=== PATIENT | female | born 1970 | race Two or more races ===

== ENCOUNTER 2020-01-12 16:20 | Emergency (ER) | payer BC, OTHER ==
[~2020-01-12] VITALS: Ht 157.5 cm; Wt 70.3 kg
[2020-01-12] MEDS ORDERED: SODIUM CHLORIDE 0.9% 1,000 ML IV ONE ×2 (18:00→20:00)
[2020-01-12] MEDS ORDERED: BENZOCAINE (DENTAL) 20 % SPRAY 60ML MT ONE (18:04)
[2020-01-12] MEDS ORDERED: SODIUM CHLORIDE LOCK 10 ML ONE (18:04)
[2020-01-12] MEDS ORDERED: NALOXONE HCL 0.4 MG/ML VIAL ONE (18:04)
[2020-01-12] MEDS ORDERED: FLUMAZENIL 0.1 MG/ML INJ 10ML MDV IV ONE (18:04)
[2020-01-12] MEDS ORDERED: diphenhdrAMINE HCL 50 MG/1 ML VL ONE (18:05)
[2020-01-12 19:03] LABS: Basophils # (auto) 0 10 ^3/uL (0-0.2); Basophils % (auto) 0.8 % (0.0-2.0); Eosinophils # (auto) 0.2 10 ^3/uL (0-0.8); Eosinophils % (auto) 3.4 % (0.0-7.0); Hematocrit 32.6 % (36.0-46.0); Hemoglobin 10.6 g/dL (12.2-16.2); Lymphocytes # (auto) 1.7 10 ^3/uL (0.4-5.4); Lymphocytes % (auto) 27.2 % (10.0-50.0); Mean Corpuscular Hemoglobin 22.8 pg (28.0-32.0); Mean Corpuscular Hgb Conc. 32.4 g/dL (32.0-36.0); Mean Corpuscular Volume 70.4 fL (80.0-100.0); Monocytes # (auto) 0.5 10 ^3/uL (0-1.3); Monocytes % (auto) 8.3 % (0.0-12.0); Neutrophils # (auto) 3.8 10 ^3/uL (1.6-8.6); Neutrophils % (auto) 60.3 % (37.0-80.0); Platelet Count (auto) 266 10^3/uL (140-450); Red Blood Cells 4.63 10^6/uL (4.0-5.20); Red Cell Distribution Width 18.4 % (11.8-14.3); White Blood Cell 6.4 10^3/uL (4.4-10.8)
[2020-01-12 19:11] LABS: INR 0.9 (0.9-1.15)
[2020-01-12 19:19] LABS: BUN/Creatinine Ratio 21.6; Potassium 3.6 mmol/L (3.5-5.1)
[2020-01-12] MEDS: fentaNYL CITRATE 100 MCG/2 ML VL ONE ×2 (20:02→20:05)
[2020-01-12] MEDS: MIDAZOLAM HCL 5 MG/ML-1ML VIAL ONE ×2 (20:02→20:05)
[2020-01-12 22:30] VITALS: BP 127/75
== END 2020-01-12 22:56 | disposition home or self-care (01) ==
LOC: ER 16:20
DX: T18.108A Unspecified foreign body in esophagus causing other injury, initial encounter (principal); M54.2 Cervicalgia; Z20.828 Contact with and (suspected) exposure to other viral communicable diseases; X58.XXXA Exposure to other specified factors, initial encounter; Y93.89 Activity, other specified; Y92.89 Other specified places as the place of occurrence of the external cause; Y99.8 Other external cause status
CPT/HCPCS: 36415; 43235; 70490; 80048; 85025; 85610; 87426; 96360; 96361; 99285; C9803; J2250; J3010; J7030; U0003

== ENCOUNTER 2021-09-28 11:42 | Emergency (ER) | payer BC, OTHER ==
[2021-09-28] MEDS ORDERED: LORazepam 2MG/ML-1ML VIAL IV ONE (13:00)
[2021-09-28] MEDS ORDERED: diazePAM 2 MG TAB PO ONE (13:30)
[2021-09-28] MEDS ORDERED: LORA0.5T20 PO (13:32)
[2021-09-28 15:32] VITALS: BP 149/90
== END 2021-09-28 14:39 | disposition home or self-care (01) ==
LOC: ER 11:42
DX: I10 Essential (primary) hypertension (principal); F41.9 Anxiety disorder, unspecified; E78.5 Hyperlipidemia, unspecified
CPT/HCPCS: 70450

== ENCOUNTER 2023-04-28 22:01 | Emergency (ER) | payer OTHER ==
[~2023-04-28] VITALS: Ht 157.5 cm; Wt 73.0 kg
[~2023-04-28 22:01] MED LIST: LORA-1121 PO
[2023-04-29] MEDS ORDERED: IBUP-1455 PO (01:19)
[2023-04-29] MEDS ORDERED: HYDR-4902 PO (01:19)
[2023-04-29] MEDS: HYDROcodone-ACET 10/325MG TAB PO ONE (02:24)
[2023-04-29 02:40] VITALS: BP 127/84; PULSE 95; RESP 16; TEMP 98.7; O2SAT 98
== END 2023-04-29 02:40 | disposition home or self-care (01) ==
LOC: ER 22:01
DX: S93.401A Sprain of unspecified ligament of right ankle, initial encounter (principal); E78.5 Hyperlipidemia, unspecified; X50.1XXA Overexertion from prolonged static or awkward postures, initial encounter; Y93.89 Activity, other specified; Y92.89 Other specified places as the place of occurrence of the external cause; Y99.8 Other external cause status
CPT/HCPCS: 73610

== ENCOUNTER 2023-08-18 13:32 | Emergency (ER) | payer OTHER ==
[~2023-08-18] VITALS: Ht 157.5 cm; Wt 72.0 kg
[~2023-08-18 13:32] MED LIST changes: +HYDR-4902 PO; +IBUP-1455 PO
[2023-08-18 16:01] VITALS: BP 132/92; PULSE 84; RESP 18; TEMP 97.8; O2SAT 96
[2023-08-18] MEDS ORDERED: AUG875T PO (16:08)
[2023-08-18] MEDS ORDERED: NAPR-746 PO (16:08)
[2023-08-18] MEDS: KETOROLAC TROMETH 30 MG/ML 1ML VIAL IV ONE (16:15)
[2023-08-18] MEDS: AMPICILLIN & SULBACTAM SODIUM 3 GM in SODIUM CHL 0.9% 100 ML IV ONE (16:15)
[2023-08-18] MEDS: TETANUS-DIPTH-ACEL PERTUSSIS 0.5ML SYR Tdap IM ONE (16:24)
== END 2023-08-18 17:21 | disposition home or self-care (01) ==
LOC: ER 13:32
DX: S81.051A Open bite, right knee, initial encounter (principal); M25.561 Pain in right knee; E78.5 Hyperlipidemia, unspecified; W54.0XXA Bitten by dog, initial encounter; Y93.89 Activity, other specified; Y92.89 Other specified places as the place of occurrence of the external cause; Y99.8 Other external cause status
CPT/HCPCS: 73562; 73700; 90471; 90715; 96365; 96375; 99285; J1885

== ENCOUNTER 2024-06-24 22:33 | Emergency (ER) | payer OTHER ==
[~2024-06-24] VITALS: Ht 157.5 cm; Wt 76.7 kg
[~2024-06-24 22:33] MED LIST changes: +AUG875T PO; +NAPR-746 PO
--- NOTE | 2024-06-24 23:01 | ED.PDOC ---
Back pain HPI HPI Comments Pt c/o right hand pain x30 min. Pt says she got off work and noticed some bruising to dorsal aspect of hand. Noted small bruise and hematoma to hand below 2nd and 3rd fingers. Pt rates pain 7/10. Denies any trauma. Chief Complaint: Upper Extremity Time Seen by MD: 22:49 Primary Care Provider: DARIA Barlow Notes: Nurses Notes, Medications, Allergies Allergies: Coded Allergies: NO KNOWN ALLERGIES (Unverified , 01/12/20) Home Meds Active Scripts Naproxen (Naproxen) 500 Mg Tab, 500 MG PO BIDPC for 10 Days, #20 TAB 0 Refills Prov:TOLU MURRAY JOB COUNSELOR 08/18/23 Amoxicillin & Pot Clavulanate (AUGMENTIN TABLET) 875 Mg Tb, 875 MG PO BID for 10 Days, #20 TAB 0 Refills Prov:TOLU MURRAY JOB COUNSELOR 08/18/23 Hydrocodone-Acetaminophen (Hydrocodone Bitartrate/AC 5-325 mg) 1 Tab Tab, 1 TAB PO Q6HP PRN, #20 TAB Prov:RAGHAV MELGAR PAC 04/29/23 Ibuprofen Micronized (Ibuprofen) 800 Mg Tab, 800 MG PO Q8HP PRN, #30 TAB Prov:RAGHAV MELGAR PAC 04/29/23 Lorazepam (ATIVAN TABLET) 0.5 Mg Tb, 1 TAB PO DAILY for 7 Days, #7 TAB Prov:ERLIN GOMEZ MD 09/28/21 Information Source: Patient Mode of Arrival: Ambulatory Past Medical History PAST MEDICAL HISTORY: Anxiety, Depression, High Lipids Surgical History: Denies all surgeries 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 Family History Family History: Reviewed,noncontributory to illness, Family hx of HTN Social History Smoker: Non-Smoker Alcohol: Rarely Drugs: Denies Drug Use Lives In: Home Constitutional: denies: chills, diaphoresis, fatigue, fever, malaise, sweats, weakness, others EENTM: denies: blurred vision, double vision, ear bleeding, ear discharge, ear drainage, ear pain, ear ringing, eye pain, eye redness, hearing loss, mouth pain, mouth swelling, nasal discharge, nose bleeding, nose congestion, nose pain, photophobia, tearing, throat pain, throat swelling, voice changes, others Respiratory: denies: cough, hemoptysis, orthopnea, SOB at rest, shortness of breath, SOB with excertion, stridor, wheezing, others Cardiovascular: denies: chest pain, dizzy spells, diaphoresis, Dyspnea on exertion, edema, irregular heart beat, left arm pain, lightheadedness, palpitations, PND, syncope, others Gastrointestinal: denies: abdomen distended, abdominal pain, blood streaked bowels, constipated, diarrhea, dysphagia, difficulty swallowing, hematemesis, melena, nausea, poor appetite, poor fluid intake, rectal bleeding, rectal pain, vomiting, others Genitourinary: denies: abnormal vagina bleeding, burning, dyspareunia, dysuria, flank pain, frequency, hematuria, incontinence, pain, , vagina discharge, urgency, others Neurological: denies: dizziness, fainting, headache, left sided numbness, left sided weakness, numbness, paresthesia, pre-existing deficit, right sided numbness, right sided weakness, seizure, speech problems, tingling, tremors, weakness, others Musculoskeletal: denies: back pain, gout, joint pain, joint swelling, muscle pain, muscle stiffness, neck pain, others Integumetry: denies: bruises, change in color, change in hair/nails, dryness, laceration, lesions, lumps, rash, wounds, others Allergic/Immunocompromised: denies: Difficulty Healing, Frequent Infections, Hives, Itching, others Hematologic/Lymphatic: denies: anemia, blood clots, easy bleeding, easy bruising, swollen glands, others Endocrine: denies: excessive hunger, excessive sweating, excessive thirst, excessive urination, flushing, intolerance to cold, intolerance to heat, unexplained weight gain, unexplained weight loss, others Psychiatric: denies: anxiety, bipolar disorder, depression, hopeless, panic disorder, schizophrenia, sleepless, suicidal, others Physical Exam General Appearance: No Apparent Distress, Normal HEENT: Pharynx Normal Neck: Full Range of Motion, Non-Tender Respiratory: Lungs Clear, No Respiratory Distress, Normal Breath Sounds Cardiovascular: No Murmur, Normal Peripheral Pulses, Regular Rate/Rhythm Breast Exam: Deferred Gastrointestinal: Non Tender, Soft Genitalia: Deferred Pelvic: Deferred Rectal: Deferred Extremities: Normal capillary refill, Normal inspection, Normal range of motion, Non-tender, No pedal edema Musculoskeletal : Apperance: Normal Neurologic: Alert, warehouse team member II-XII nml as Tested, No Motor Deficits, Normal Affect, Normal Mood, No Sensory Deficits Cerebellar Function: Normal Reflexes: Normal Skin: Bruises (Dorsum Aspect of right hand hematoma), Dry, Normal Color, Warm Lymphatic: No Adenopathy Was a procedure done? Was a procedure done?: No Back Pain Differential Dx Differential Diagnosis: Fracture, Musculoskeletal Pain, Strain X-Ray, Labs, Meds, VS Vital Signs Date Time Temp Pulse Resp B/P (MAP) Pulse Ox O2 Delivery O2 Flow Rate FiO2 06/24/24 23:22 98.5 78 18 151/91 (111) 97 98.5 06/24/24 23:22 78 18 97 Room Air 06/24/24 22:41 98.5 95 16 168/99 (122) 96 98.5 X-Ray, Labs, Meds, VS Comment Right hand x-ray shows no acute fractures osseous lesions or dislocations. Likely a spontaneous hematoma. No change in size since patient has arrived. [place] wrap applied ice given advised to follow up with her PCP in 1-2 days ER re turn precautions given patient indicates understanding agrees with discharge plan of care. Time of 1ST Reevaluation: 23:00 Reevaluation 1ST: Unchanged Time of 2ND Reevaluation: 23:41 Reevaluation 2ND: Improved Patient Education/Counseling: Diagnosis, Treatment, Prognosis, Need For Follow Up Family Education/Counseling: Diagnosis, Treatment, Prognosis, Need For Follow Up Departure 1 Departure Time of Disposition: 23:41 Impression: Primary Impression: Hematoma of right hand Disposition: 01 HOME / SELF CARE / HOMELESS Condition: Stable Discharged With: Self Critical Care Note Critical Care Time?: No Stability Stability form required: GILDA Hanna Jun 24, 2024 23:01
[2024-06-24 23:22] VITALS: BP 151/91; PULSE 78; RESP 18; TEMP 98.5; O2SAT 97
--- NOTE | 2024-06-24 23:37 | DVH ---
CLINICAL INDICATION: hand swelling dorsum aspect TECHNIQUE: radiographic views of the were obtained. Comparison: None FINDINGS/IMPRESSION: No osseous or joint abnormality identified with no fracture or dislocation. Joint spaces are normal.
== END 2024-06-24 23:47 | disposition home or self-care (01) ==
LOC: ER 22:33
DX: S60.221A Contusion of right hand, initial encounter (principal); F41.9 Anxiety disorder, unspecified; E78.5 Hyperlipidemia, unspecified; F32.A Depression, unspecified; Z79.899 Other long term (current) drug therapy; X58.XXXA Exposure to other specified factors, initial encounter; Y93.89 Activity, other specified; Y92.89 Other specified places as the place of occurrence of the external cause; Y99.8 Other external cause status
CPT/HCPCS: 73130

== ENCOUNTER 2024-07-22 17:54 | Inpatient (IN) | payer OTHER ==
[~2024-07-22] VITALS: Ht 157.5 cm; Wt 80.5 kg
--- NOTE | 2024-07-22 18:11 | ECG ---
[facility] Test Date: 2024-07-22 Test Time: 18:05:32 Pat Name: LENARD SHARMA Department: ER Room: 0298T Gender: F Toilet Attendant: ROMAINE : 1970 Requested By: CASTRO VAZ Order Number: [id number] Reading MD: Clive Selby Measurements Intervals Solo Rate: 77 P: 34 TX: 148 QRS: 15 QRSD: 95 T: 24 QT: 412 QTc: 467 Interpretive Statements Sinus rhythm RSR' in V1 or V2, probably normal variant Borderline T abnormalities, anterior leads Electronically Signed On 07-27-2024 12:09:03 PDT by Clive Selby Please click the below link to view image of tracing.
--- NOTE | 2024-07-22 18:27 | ED.PDOC ---
HPI (NEURO) HPI Comments 54 y/o F, with PMHx of anxiety, depression, and HLD presents to the ED for CC of dizziness. Patient states, that she has been experiencing symptoms of dizziness with associated lack of coordination onset, 0745 this morning (07/22/24). Patient relays, right side of face to feel numb, and reports slight sway to left when ambulating. Patient describes dizziness, to feel as if the room is spinning around her. Patient denies headache, vomiting, nausea, or blurred vision. No other symptoms or modifying factors present at this time. Chief Complaint: Dizziness Time Seen by MD: 18:00 Primary Care Provider: DARIA Barlow Notes: Nurses Notes, Medications, Allergies Information Source: Patient Mode of Arrival: Ambulatory Severity: Moderate Dizziness/Weakness Severity: Unable to do activities Headache Severity: None Timing: Hours Duration: Intermittent Prehospital treatment: None Headache Location: Generalized Onset: At rest Circumstances: Spontaneous Symptoms: Vertigo Before: Normal During: Awake After: Normal Mentation History of: None Modifying factors: Nothing Past Medical History PAST MEDICAL HISTORY: Anxiety, Depression, High Lipids Surgical History: Denies all surgeries DEVELOPMENT COACH History: Denies all DEVELOPMENT COACH Hx Family History Family History: Reviewed,noncontributory to illness, Family hx of HTN Social History Smoker: Non-Smoker Alcohol: Rarely Drugs: Denies Drug Use Lives In: Home Constitutional: denies: chills, diaphoresis, fatigue, fever, malaise, sweats, weakness, others EENTM: denies: blurred vision, double vision, ear bleeding, ear discharge, ear drainage, ear pain, ear ringing, eye pain, eye redness, hearing loss, mouth pain, mouth swelling, nasal discharge, nose bleeding, nose congestion, nose pain, photophobia, tearing, throat pain, throat swelling, voice changes, others Respiratory: denies: cough, hemoptysis, orthopnea, SOB at rest, shortness of breath, SOB with excertion, stridor, wheezing, others Cardiovascular: denies: chest pain, dizzy spells, diaphoresis, Dyspnea on exertion, edema, irregular heart beat, left arm pain, lightheadedness, palpitations, PND, syncope, others Gastrointestinal: denies: abdomen distended, abdominal pain, blood streaked bowels, constipated, diarrhea, dysphagia, difficulty swallowing, hematemesis, melena, nausea, poor appetite, poor fluid intake, rectal bleeding, rectal pain, vomiting, others Genitourinary: denies: abnormal vagina bleeding, burning, dyspareunia, dysuria, flank pain, frequency, hematuria, incontinence, pain, , vagina discharge, urgency, others Neurological: reports: dizziness; denies: fainting, headache, left sided numbness, left sided weakness, numbness, paresthesia, pre-existing deficit, right sided numbness, right sided weakness, seizure, speech problems, tingling, tremors, weakness, others Musculoskeletal: denies: back pain, gout, joint pain, joint swelling, muscle pain, muscle stiffness, neck pain, others Integumetry: denies: bruises, change in color, change in hair/nails, dryness, laceration, lesions, lumps, rash, wounds, others Allergic/Immunocompromised: denies: Difficulty Healing, Frequent Infections, Hives, Itching, others Hematologic/Lymphatic: denies: anemia, blood clots, easy bleeding, easy bruising, swollen glands, others Endocrine: denies: excessive hunger, excessive sweating, excessive thirst, excessive urination, flushing, intolerance to cold, intolerance to heat, unexplained weight gain, unexplained weight loss, others Psychiatric: denies: anxiety, bipolar disorder, depression, hopeless, panic disorder, schizophrenia, sleepless, suicidal, others All Other Systems: Reviewed and Negative Physical Exam General Appearance: None HEENT: PERRL/EOMI Neck: Full Range of Motion Respiratory: Lungs Clear, No Respiratory Distress Cardiovascular: No Murmur, Normal Peripheral Pulses, Regular Rate/Rhythm Breast Exam: Deferred Gastrointestinal: Non Tender, Normal Bowel Sounds Genitalia: Deferred Pelvic: Deferred Rectal: Deferred Extremities: No pedal edema Neurologic: Dizziness, No Motor Deficits Cerebellar Function: Ataxia Reflexes: NOT DONE Skin: Normal Color Lymphatic: NOT DONE EKG EKG : Comments No STEMI Was a procedure done? Was a procedure done?: No Differential Diagnosis (SZ) General Weakness: Anemia, CVA, Dehydration, Electrolyte imbalance, Hypoglycemia X-Ray, Labs, Meds, VS Vital Signs Date Time Temp Pulse Resp B/P (MAP) Pulse Ox O2 Delivery O2 Flow Rate FiO2 07/22/24 23:00 62 13 149/90 (109) 98 07/22/24 22:00 73 9 157/87 (110) 98 07/22/24 20:00 98.3 63 10 166/95 (118) 98 98.3 07/22/24 19:35 62 20 99 Nasal Cannula* 2 28 07/22/24 19:08 62 20 99 Room Air* 0 21 07/22/24 18:30 97.4 75 97 163/97 (119) 97 97.4 07/22/24 18:05 77 07/22/24 17:58 97.3 78 18 146/85 (105) 97 97.3 Lab Test 07/22/24 22:05 07/22/24 21:10 07/22/24 18:40 07/22/24 18:19 Range/Units Urine Color Light-yellow Yellow Urine Clarity Turbid H Clear Urine pH 6.0 5.0-9.0 Urine Specific [place] 1.025 1.001-1.035 Urine Protein Negative Negative Urine Ketones Negative Negative Urine Blood Negative Negative /uL Urine Nitrite Negative Negative Urine Bilirubin Negative Negative Urine Urobilinogen Normal Negative mg/dL Urine Leukocyte Esterase 3+ Negative /uL Urine RBC 7 0 - 4 /hpf Urine Microscopic WBC 16 H 0-5 /HPF Urine Squamous Epithelial Cells Mod <5 /hpf Urine Bacteria None seen None Seen /hpf Urine Glucose Normal Normal mg/dL POC Glucose 87 89 70-106 mg/dl White Blood Count 6.5 4.4-10.8 10^3/uL Red Blood Count 4.83 4.0-5.20 10^6/uL Hemoglobin 14.2 12.2-16.2 g/dL Hematocrit 41.0 36.0-46.0 % Mean Corpuscular Volume 84.9 80.0-100.0 fL Mean Corpuscular Hemoglobin 29.4 28.0-32.0 pg Mean Corpuscular Hemoglobin Concent 34.7 32.0-36.0 g/dL Red Cell Distribution Width 13.6 11.8-14.3 % Platelet Count 248 140-450 10^3/uL Mean Platelet Volume 8.0 6.9-10.8 fL Neutrophils (%) (Auto) 59.1 37.0-80.0 % Lymphocytes (%) (Auto) 28.6 10.0-50.0 % Monocytes (%) (Auto) 8.7 0.0-12.0 % Eosinophils (%) (Auto) 2.6 0.0-7.0 % Basophils (%) (Auto) 1.0 0.0-2.0 % Neutrophils # (Auto) 3.9 1.6-8.6 10 ^3/uL Lymphocytes # (Auto) 1.9 0.4-5.4 10 ^3/uL Monocytes # (Auto) 0.6 0-1.3 10 ^3/uL Eosinophils # (Auto) 0.2 0-0.8 10 ^3/uL Basophils # (Auto) 0.1 0-0.2 10 ^3/uL Nucleated Red Blood Cells 0.1 % Prothrombin Time 10.3 9.3-11.8 sec Prothrombin Time INR 0.97 0.9-1.15 Activated Partial Thromboplast Time 26.5 24.5-34.5 SEC Sodium Level 141 136-145 mmol/L Potassium Level 4.1 3.5-5.1 mmol/L Chloride Level 105 98-107 mmol/L Carbon Dioxide Level 26 20-31 mmol/L Anion Gap 10 5-15 Blood Urea Nitrogen 15 9-23 mg/dL Creatinine 0.74 0.550-1.02 mg/dL Glomerular Filtration Rate Calc 95 >90 mL/min BUN/Creatinine Ratio 20.3 H 10.0-20.0 Serum Glucose 98 74-106 mg/dL Calcium Level 9.7 8.7-10.4 mg/dL Total Bilirubin 0.6 0.2-1.0 mg/dL Aspartate Amino Transferase (AST) 29 13-40 U/L Alanine Aminotransferase (ALT) 57 H 7-40 U/L Alkaline Phosphatase 92 46-116 U/L Total Protein 7.0 5.7-8.2 g/dL Albumin 4.8 3.2-4.8 g/dL Test 07/22/24 17:59 Range/Units POC Glucose 107 H 70-106 mg/dl Current Medications Medications (Trade) Dose Ordered Sig/Magalie Route Start Time Stop Time Status Last Admin Sodium Chloride 1,000 ml @ 1,000 mls/hr Q1H ONCE IV 07/22/24 18:30 07/22/24 19:29 DC 07/22/24 18:55 Meclizine HCl (Antivert Tablet) 50 mg ONCE ONCE PO 07/22/24 18:30 07/22/24 18:31 DC 07/22/24 18:52 Aspirin 324 mg ONCE ONCE PO 07/22/24 18:45 07/22/24 18:46 DC 07/22/24 18:52 Clopidogrel Bisulfate (Plavix) 75 mg ONCE ONCE PO 07/22/24 19:30 07/22/24 19:31 DC 07/22/24 19:39 Atorvastatin Calcium (Lipitor) 80 mg ONCE ONCE PO 07/22/24 19:30 07/22/24 19:31 DC 07/22/24 19:39 Sodium Chloride (Saline Lock Ns) 10 ml Q8HR IV 07/22/24 22:00 07/22/24 22:07 Time of 1ST Reevaluation: 18:30 Reevaluation 1ST: Unchanged Patient Education/Counseling: Diagnosis, Treatment Family Education/Counseling: No Family Present Departure 1 Departure Time of Disposition: 23:48 Impression: Primary Impression: Dizziness Additional Impression: Stroke-like symptom Disposition: ADMITTED INPATIENT Condition: Stable Comments 54-year-old female who presented to the emergency department with dizziness 70 for CVA. Case was discussed with Neurology. Recommendation is admit for further stroke workup including MRI, Plavix 75 mg daily, aspirin 81 mg daily and Lipitor 80 mg daily Patient admitted to hospitalist service for further treatment, evaluation and monitoring. Extensive evaluation was performed in attempt to identify or rule out: (See differential diagnosis section) The following tests were ordered, and results were reviewed by me and discussed with patient: (See diagnostic results section) The following test were independently interpreted by me: EKG I reviewed and agreed with the following test results read by other providers: CT head without contrast I reviewed the following notes from the pt's past medical encounters: N/A Additional information was gathered from interviewing the following independent historians: N/A Discussion of management or test interpretation with external physician/other qualified health lead caregiver: Dr. August Addressed an acute or chronic illness that poses a threat to life or bodily function: Severe dizziness, stroke-like symptoms Decision regarding hospitalization or escalation of hospital level of care: Risk and benefits of admission for further treatment of patient's condition was considered. Due to patient's current clinical condition, high risk of decline and poor outcome if discharged and need for further inpatient management and monitoring, patient will be admitted to the hospital. Drug therapy requiring intensive monitoring for toxicity: IV contrast Parenteral controlled substances: N/A Decision regarding elective major surgery with identified patient or procedure risk factors: N/A Decision regarding emergency major surgery: N/A Decision not to resuscitate or to de-escalate care because of poor prognosis: N/A Diagnosis or treatment significantly limited by social determinants of health: N/A Critical Care Note Critical Care Time?: No Stability Stability form required: No Heart Score Heart Score: Heart Score Response (Comments) Value History N/A 0 EKG N/A 0 Age N/A 0 Risk Factors N/A 0 Troponin N/A 0 Total 0 I personally scribed for CASTRO VAZ MD ([email or web address]) on 07/22/24 at 18:27. Electronically submitted by Luci Casper ([email or web address]). I personally scribed for CASTRO VAZ MD ([email or web address]) on 07/22/24 at 18:33. Electronically submitted by Luci Casper ([email or web address]). CASTRO VAZ MD July 22, 2024 18:27
--- NOTE | 2024-07-22 18:38 | DVH ---
CT STROKE CTH INDICATION: dizziness EXAM DATE: 07/22/2024 06:09 PM COMPARISON: HEAD WITHOUT CONTRAST on DOS: 09/28/21 TECHNIQUE: CT of the head without intravenous contrast. RADIATION DOSE: CTDIvol: 50.44 mGy, DLP: 808.79 mGy*cm FINDINGS: There is no evidence of acute intracranial hemorrhage, extra-axial collection, mass effect, midline s hift, herniation or hydrocephalus. The ventricles, sulci and cisterns are age appropriate. The conteh -white differentiation is intact. The visualized paranasal sinuses and mastoid air cells are clear. There is no evidence of skull fracture. The surrounding soft tissues and osseous structures are unr emarkable. IMPRESSION: 1. No evidence of acute intracranial hemorrhage, mass effect, hydrocephalus or skull fracture. Critical report notified
[2024-07-22] MEDS: ASPirin 81 mg TAB PO ONE (18:52)
[2024-07-22] MEDS: MECLIZINE HCL 25 MG TAB PO ONE (18:52)
[2024-07-22] MEDS: SODIUM CHLORIDE 0.9% 1,000 ML IV ONE (18:55)
[2024-07-22 19:02] LABS: Basophils # (auto) 0.1 10 ^3/uL (0-0.2); Eosinophils # (auto) 0.2 10 ^3/uL (0-0.8); Eosinophils % (auto) 2.6 % (0.0-7.0); Hemoglobin 14.2 g/dL (12.2-16.2); Lymphocytes # (auto) 1.9 10 ^3/uL (0.4-5.4); Lymphocytes % (auto) 28.6 % (10.0-50.0); Mean Corpuscular Hemoglobin 29.4 pg (28.0-32.0); Mean Corpuscular Hgb Conc. 34.7 g/dL (32.0-36.0); Mean Corpuscular Volume 84.9 fL (80.0-100.0); Monocytes # (auto) 0.6 10 ^3/uL (0-1.3); Monocytes % (auto) 8.7 % (0.0-12.0); Neutrophils # (auto) 3.9 10 ^3/uL (1.6-8.6); Neutrophils % (auto) 59.1 % (37.0-80.0); Nucleated Red Blood Cells % 0.1 %; Platelet Count (auto) 248 10^3/uL (140-450); Red Blood Cells 4.83 10^6/uL (4.0-5.20); Red Cell Distribution Width 13.6 % (11.8-14.3); White Blood Cell 6.5 10^3/uL (4.4-10.8)
[2024-07-22 19:08] VITALS: PULSE 62; RESP 20; O2SAT 99
[2024-07-22 19:19] LABS: INR 0.97 (0.9-1.15); Partial Thromboplastin Time 26.5 SEC (24.5-34.5); Prothrombin Time 10.3 sec (9.3-11.8)
[2024-07-22 19:20] LABS: Alkaline Phosphatase 92 U/L (46-116); Anion Gap 10 (5-15); Aspartate Aminotransferase 29 U/L (13-40); BUN/Creatinine Ratio 20.3 (10.0-20.0); Bilirubin, Total 0.6 mg/dL (0.2-1.0); Blood Urea Nitrogen 15 mg/dL (9-23); Calcium 9.7 mg/dL (8.7-10.4); Carbon Dioxide 26 mmol/L (20-31); Chloride 105 mmol/L (98-107); Glucose 98 mg/dL (74-106); Potassium 4.1 mmol/L (3.5-5.1); Sodium 141 mmol/L (136-145)
[2024-07-22 19:21] LABS: Alanine Aminotransferase 57 U/L (7-40); Albumin 4.8 g/dL (3.2-4.8)
[2024-07-22 19:35] VITALS: PULSE 62; RESP 20; O2SAT 99
[2024-07-22] MEDS: CLOPIDOGREL BISULFATE 75 MG TAB PO ONE (19:39)
[2024-07-22] MEDS: ATORVASTATIN 20 MG TAB PO ONE (19:39)
[2024-07-22] MEDS ORDERED: ONDANSETRON HCL 4 MG/2 ML VIAL IV PRN (21:30)
[2024-07-22] MEDS ORDERED: DOCUSATE SOD 100 MG CAP PO PRN (21:30)
--- NOTE | 2024-07-22 21:33 | BSKYNEURO ---
[facility] Note # Demographics Consult Type: Acute Stroke Level 2 (4.5-24 hrs) Patient Location: Emergency Room First Name: katie Last Name: santhosh Date of : 1970 Age: 54 Gender: Female Facility: [facility] Time of Initial Page (): 07/22/2024 18:19 Time of Return Call (): 07/22/2024 18:19 # HPI Chief Complaint: - dizziness History: 54 y/o F with a PMHx of HTN, HLD presented with dizziness, gait imbalance, which started at 7:45 AM this morning. On exam, she has a slight L facial and dysmetria in the LUE. She says she feels like she just got off of a rollercoaster. She has a slight headache. # Scores Time of exam and NIHSS (): 07/22/2024 18:42 Level of Consciousness 1a: [0] = Alert; keenly responsive LOC Questions 1b: [0] = Answers both questions correctly LOC Commands 1c: [0] = Performs both tasks correctly Best Gaze 2: [0] = Normal Visual 3: [0] = No visual loss Facial Palsy 4: [0] = Normal symmetrical movements Motor Arm Left 5a: [0] = No drift Motor Arm Right 5b: [0] = No drift Motor Leg Left 6a: [0] = No drift Motor Leg Right 6b: [0] = No drift Limb Ataxia 7: [0] = Absent Sensory 8: [0] = Normal Best Language 9: [0] = No aphasia Dysarthria 10: [0] = Normal Extinction and Inattention 11: [0] = No abnormality NIHSS Total: 0 # Data Head CT: - no bleed - per radiologist read # Assessment Impression: - Ischemic Stroke (Acute) # Plan Thrombolytic/Intervention: Possible IA candidate Thrombolytic Exclusion (< 3 hour window): - non-disabling deficit Thrombolytic Exclusion: > 4.5 hours Possible IA Candidate: - CTA pending Target Blood Pressure: - SBP < 220 - DBP < 120 Labs: - CBC - comprehensive metabolic panel - hemoglobin A1c - lipid panel - TSH - ua Imaging: (urgency: STAT): - CT Angiogram Head and CT Angiogram Neck Imaging: (urgency: routine): - MRI Brain without contrast Diagnostic Test: - echo with bubble study Therapy/Evaluation: - NPO until swallow evaluation - speech/swallow consultation - PT/OT evaluation Medication: - aspirin 81 mg PLUS clopidogrel (Plavix) 75 mg for 21 days, then monotherapy therafter - start statin with goal of LDL < 70 DVT Prophylaxis: - enoxaprin (Lovenox) 40 mg subcutaneously daily Other: - If patient has any neurological deterioration please call me back immediately - LDL < 70 - I have discussed my recommendations with the referring provider - will need event monitor or loop recorder as outpatient if atrial fibrillation not found as inpatient - permissive hypertension - telemetry monitoring Disposition: admit # Logistics Attestation of consult completion: The patient is located at: [facility]. Facility staff participated in the visit. I performed this telemedicine visit from my offsite office utilizing interactive 2 way audio and visual telecommunication technology. Total time spent in telemedicine encounter: I spent 20 minutes reviewing clinical data and/or imaging, obtaining history, examining the patient, communicating with the onsite care team, and in preparation of this report. # Demographics First Name: katie Last Name: trevizo Facility: [facility] Electronically signed at 07/22/2024 21:32 ([place] Time) by Maai Yao MD Yes MAIA YAO MD July 22, 2024 21:33
[2024-07-22] MEDS: IOHEXOL 350 MG/ML 100ML IJ ONE (21:49)
[2024-07-22] MEDS: ATORVASTATIN 20 MG TAB PO SCH (22:00)
[2024-07-22 22:06] LABS: Urine Bacteria None Seen /hpf (None Seen)
[2024-07-22] MEDS: SODIUM CHLOR 0.9% PF (SALINE LOCK) 10ML VIAL/SYR IV SCH (22:07)
--- NOTE | 2024-07-22 22:16 | DVH ---
INDICATION: Dizziness, suspected CVA COMPARISON: None TECHNIQUE: CTA head with intravenous contrast. CTA neck with intravenous contrast. 3D image postpr ocessing was performed on a dedicated workstation and images were used for interpretation and reporti ng. Radiation Dose Information: CT Dose: CTDI volume is mGy. Dose-length product is mGy*cm FINDINGS: CTA Head: No abnormality is demonstrated in the intracranial ICAs, MCAs, and ACAs. The intracranial vertebral a rteries, basilar artery, and steam engineer are also unremarkable. Visualized intracranial venous structures ar e grossly unremarkable. CTA Neck: Aortic arch and proximal great vessels demonstrate no abnormality. Left common, internal and external carotid arteries demonstrate no abnormality. Right common, internal and external carotid arteries demonstrate no abnormality. Cervical segments of right and left vertebral arteries demonstrate no abnormality. Right slightly do minant. Limited visualized lung apices are clear. Soft tissues appear unremarkable. Mild cervical spondylosi s without spinal canal stenosis. Osseous structures are otherwise unremarkable. IMPRESSION: No abnormality demonstrated. All CT scans at this medical facility are performed using dose modulation techniques as appropriate t o a performed exam including the following: Automated exposure control was utilized; adjustment of th e MA and/or KV according to patient size; and use of iterative reconstruction technique.
[2024-07-22 22:21] LABS: Urine Blood Negative /uL (Negative); Urine Clarity Turbid (Clear); Urine Color Light-Yellow (Yellow); Urine Protein, UAD Negative (Negative); Urine Specific Gravity 1.025 (1.001-1.035); Urine Squamous Epithelial Cell MOD /hpf (<5); Urine Urobilinogen Normal (Negative); Urine WBC 16 /HPF (0-5)
--- NOTE | 2024-07-22 23:18 | DVHHP2 ---
History of Present Illness Reason for Visit: Dizziness History of Present Illness The patient is a 54-year-old female with past medical history of depression, anxiety, and hyperlipidemia who presented to [facility] ED with complaint of dizziness. Patient reports symptoms progressively get worse with lack of coordination, numbness of right face, weakness, spinning sensation around her, getting worse that prompted this visit. Patient was seen and evaluated in the ED, laboratory data shows WBC 6.5, platelets 248, sodium 141, potassium 4.1, BUN 15, creatinine 0.74, glucose 98, AST 29, ALT 57, blood pressure 166/95, heart rate 62, temperature 98.3 F, O2 saturation 99% on oxygen. Head CT showed no evidence of acute intracranial hemorrhage, mass effect, hydrocephalus or skull fracture. Please see medication orders section in the computer. On my assessment, patient denied chest pain, no headache, no dizziness at this moment, no blurred vision, no slurred speech, no diaphoresis, no shortness of breaths, no nausea, no vomiting, no fever, no chills. Patient was admitted for further evaluation and medical management. Past Medical History Anxiety, Depression, High Lipids, HTN Past Surgical History Denies all surgeries Family History Reviewed, noncontributory to the management of this case. Past Social History The patient lives at home, denies smoking, alcohol or illicit drugs abuse. Review of Systems Constitutional: Yes: Weakness; No: Fever, Chills, Sweats, Malaise, Other Eyes: No: Pain, Vision change, Conjunctivae inflammation, Eyelid inflammation, Other, Redness ENT: No: Ear pain, Ear discharge, Nose pain, Nose discharge, Nose congestion, Mouth pain, Mouth swelling, Throat pain, Throat swelling, Other Respiratory: No: Cough, Dry, Shortness of breath, SOB with excertion, Wheezing, Hemoptysis, Pleuritic Pain, Sputum, Wheezing, Other Cardiovascular: No: Chest Pain, Palpitations, Orthopnea, Paroxysmal Noc. Dyspnea, Edema, Lt Headedness, Other Gastrointestinal: No: Nausea, Vomiting, Abdominal Pain, Diarrhea, Constipation, Melena, Hematochezia, Other Genitourinary: No Dysuria, No Frequency, No Incontinence, No Hematuria, No Retention, No Other Musculoskeletal: No: other, neck pain, shoulder pain, arm pain, back pain, hand pain, leg pain, foot pain Skin: No: Rash, Lesions, Jaundice, Bruising, Other Neurological: Other (Dizziness); No: Weakness, Numbness, Incoordination, Change in speech, Confusion, Seizures Allergies: Coded Allergies: NO KNOWN ALLERGIES (Unverified , 01/12/20) Medications Current Medications Medications Dose Ordered Sig/Magalie Route Start Time Stop Time Status Last Admin Dose Admin Meclizine HCl 25 mg Q8HPRN PRN PO 07/22/24 21:30 Atorvastatin Calcium 40 mg HS PO 07/22/24 22:00 Aspirin 81 mg DAILY PO 07/23/24 10:00 Sodium Chloride 10 ml Q8HR IV 07/22/24 22:00 07/22/24 22:07 10 ML Acetaminophen/ Hydrocodone Bitart 1 tab Q4HP PRN PO 07/22/24 21:30 Ondansetron HCl 4 mg Q4HP PRN IV 07/22/24 21:30 Docusate Sodium 100 mg BIDPRN PRN PO 07/22/24 21:30 Acetaminophen 650 mg Q6HP PRN PO 07/22/24 21:30 Exam Vital Signs Vital Signs Date Time Temp Pulse Resp B/P (MAP) Pulse Ox O2 Delivery O2 Flow Rate FiO2 07/22/24 20:00 98.3 63 10 166/95 (118) 98 98.3 07/22/24 19:35 Nasal Cannula* 2 28 General Appearance: Alert, Oriented X3, Cooperative, No acute distress HEENT: Atraumatic, PERRLA, EOMI, Mucous membr. moist/pink Respiratory: Clear to auscultation, Normal air movement Cardiovascular: Regular rate, Normal S1, Normal S2, No murmurs Abdominal: Normal bowel sounds, Soft, No tenderness, No hepatospenomegaly, No masses Extremities: No clubbing, No cyanosis, No edema, Normal pulses, No tenderness/swelling Skin: No rashes, No breakdown, No significant lesion Neuro: Normal speech, Normal tone, Sensation intact, Cranial nerves 3-12 NL, Reflexes 2+, Other (Weakness) Psych/Mental Status: Mental status NL, Mood NL Labs/Xrays Labs Test 07/22/24 22:05 07/22/24 21:10 07/22/24 18:40 Range/Units Urine Color Light-yellow Yellow Urine Clarity Turbid H Clear Urine pH 6.0 5.0-9.0 Urine Specific [place] 1.025 1.001-1.035 Urine Protein Negative Negative Urine Ketones Negative Negative Urine Blood Negative Negative /uL Urine Nitrite Negative Negative Urine Bilirubin Negative Negative Urine Urobilinogen Normal Negative mg/dL Urine Leukocyte Esterase 3+ Negative /uL Urine RBC 7 0 - 4 /hpf Urine Microscopic WBC 16 H 0-5 /HPF Urine Squamous Epithelial Cells Mod <5 /hpf Urine Bacteria None seen None Seen /hpf Urine Glucose Normal Normal mg/dL POC Glucose 87 70-106 mg/dl White Blood Count 6.5 4.4-10.8 10^3/uL Red Blood Count 4.83 4.0-5.20 10^6/uL Hemoglobin 14.2 12.2-16.2 g/dL Hematocrit 41.0 36.0-46.0 % Mean Corpuscular Volume 84.9 80.0-100.0 fL Mean Corpuscular Hemoglobin 29.4 28.0-32.0 pg Mean Corpuscular Hemoglobin Concent 34.7 32.0-36.0 g/dL Red Cell Distribution Width 13.6 11.8-14.3 % Platelet Count 248 140-450 10^3/uL Mean Platelet Volume 8.0 6.9-10.8 fL Neutrophils (%) (Auto) 59.1 37.0-80.0 % Lymphocytes (%) (Auto) 28.6 10.0-50.0 % Monocytes (%) (Auto) 8.7 0.0-12.0 % Eosinophils (%) (Auto) 2.6 0.0-7.0 % Basophils (%) (Auto) 1.0 0.0-2.0 % Neutrophils # (Auto) 3.9 1.6-8.6 10 ^3/uL Lymphocytes # (Auto) 1.9 0.4-5.4 10 ^3/uL Monocytes # (Auto) 0.6 0-1.3 10 ^3/uL Eosinophils # (Auto) 0.2 0-0.8 10 ^3/uL Basophils # (Auto) 0.1 0-0.2 10 ^3/uL Nucleated Red Blood Cells 0.1 % Prothrombin Time 10.3 9.3-11.8 sec Prothrombin Time INR 0.97 0.9-1.15 Activated Partial Thromboplast Time 26.5 24.5-34.5 SEC Sodium Level 141 136-145 mmol/L Potassium Level 4.1 3.5-5.1 mmol/L Chloride Level 105 98-107 mmol/L Carbon Dioxide Level 26 20-31 mmol/L Anion Gap 10 5-15 Blood Urea Nitrogen 15 9-23 mg/dL Creatinine 0.74 0.550-1.02 mg/dL Glomerular Filtration Rate Calc 95 >90 mL/min BUN/Creatinine Ratio 20.3 H 10.0-20.0 Serum Glucose 98 74-106 mg/dL Calcium Level 9.7 8.7-10.4 mg/dL Total Bilirubin 0.6 0.2-1.0 mg/dL Aspartate Amino Transferase (AST) 29 13-40 U/L Alanine Aminotransferase (ALT) 57 H 7-40 U/L Alkaline Phosphatase 92 46-116 U/L Total Protein 7.0 5.7-8.2 g/dL Albumin 4.8 3.2-4.8 g/dL PATIENT: LENARD SHARMAACCT: [id number] UNIT: [id number] : 1970 LOC: ER ROOM / BED: / AGE / SEX: 54 / F ADM STATUS: REG ER SERVICE 05 ORDERING PHYSICIAN: CASTRO VAZ MD PROCEDURE(s): CTH - STROKE CTH REASON: dizziness ORDER NUMBER(s): [id number], ACCESSION NUMBER(s): [id number] CT STROKE CTH INDICATION: dizziness EXAM DATE: 07/22/2024 06:09 PM COMPARISON: HEAD WITHOUT CONTRAST on DOS: 09/28/21 TECHNIQUE: CT of the head without intravenous contrast. RADIATION DOSE: CTDIvol: 50.44 mGy, DLP: 808.79 mGy*cm FINDINGS: There is no evidence of acute intracranial hemorrhage, extra-axial collection, mass effect, midline shift, herniation or hydrocephalus. The ventricles, sulci and cisterns are age appropriate. The conteh-white differentiation is intact. The visualized paranasal sinuses and mastoid air cells are clear. There is no evidence of skull fracture. The surrounding soft tissues and osseous structures are unremarkable. IMPRESSION: 1. No evidence of acute intracranial hemorrhage, mass effect, hydrocephalus or skull fracture. ORDERING PHYSICIAN: CASTRO VAZ MD PROCEDURE(s): [place] - ANGIO HEAD/Neck REASON: Dizziness, suspected CVA ORDER NUMBER(s): [id number], ACCESSION NUMBER(s): [id number] INDICATION: Dizziness, suspected CVA COMPARISON: None TECHNIQUE: CTA head with intravenous contrast. CTA neck with intravenous contrast. 3D image postprocessing was performed on a dedicated workstation and images were used for interpretation and reporting. Radiation Dose Information: CT Dose: CTDI volume is mGy. Dose-length product is mGy*cm FINDINGS: CTA Head: No abnormality is demonstrated in the intracranial ICAs, MCAs, and ACAs. The intracranial vertebral arteries, basilar artery, and cardiologist are also unremarkable. Visualized intracranial venous structures are grossly unremarkable. CTA Neck: Aortic arch and proximal great vessels demonstrate no abnormality. Left common, internal and external carotid arteries demonstrate no abnormality. Right common, internal and external carotid arteries demonstrate no abnormality. Cervical segments of right and left vertebral arteries demonstrate no abnormality. Right slightly dominant. Limited visualized lung apices are clear. Soft tissues appear unremarkable. Mild cervical spondylosis without spinal canal stenosis. Osseous structures are otherwise unremarkable. IMPRESSION: No abnormality demonstrated. Assessment/Plan Assessment/Plan Dizziness and giddiness Hypertension Stroke-like symptom Plan 1. Admit to telemetry unit 2. Breathing treatment 3. Pain control management 4. Management of fluids and electrolytes 5. Consultation for Neurology 6. Diagnostic tests head CT 7. DVT prophylaxis-on SCDs 8. Repeat labs CBC, CMP in a.m. 9. Continue with current medical management 10. Treatment plan discussed with patient and RN. Patient verbalized understanding. Plan discussed with: Patient, Other (RN) My Orders Orders - TOYA SUAREZ DNP Procedure Category Date Status Time Meclizine Tablet PHA 07/22/24 In Process (Antivert Tablet) 21:30 Atorvastatin (Lipitor) PHA 07/22/24 In Process 22:00 Aspirin Tablet PHA 07/23/24 In Process 10:00 Allergies FRANCISCO 07/22/24 In Process 21:29 Code Status CODE 07/22/24 Transmitted 21:29 Sodium Chloride Lock PHA 07/22/24 In Process (Saline Lock Ns) 22:00 Oxygen Per Hour RT 07/22/24 Transmitted 21:29 Hydrocodone-Acet PHA 07/22/24 In Process 5/325mg Tab ([place] 21:30 Ondansetron Hcl PHA 07/22/24 In Process (Zofran) 21:30 Docusate Sodium PHA 07/22/24 In Process Capsule (Colace 21:30 Complete Blood Count LAB 07/23/24 Verified 04:00 Comprehensive LAB 07/23/24 Verified Metabolic Panel 04:00 Cardiac DIET 07/23/24 Transmitted Diet-2gna,Lofat,Lochol Breakfast Condition: Serious FRANCISCO 07/22/24 In Process 21:29 Acetaminophen Tablet PHA 07/22/24 In Process (Tylenol Tablet) 21:30 Bedrest With Bathroom FRANCISCO 07/22/24 In Process Privileg 21:29 Sequential FRANCISCO 07/22/24 In Process Compression Device Problem List: (1) Dizziness and giddiness (2) Hypertension (3) Stroke-like symptom Date of Service: July 22, 2024 Billing Provider: TOYA SUAREZ DNP Common Visit Codes: [id number] INP/OBS CARE (HIGH) TOYA SUAREZ DNP July 22, 2024 23:18
[2024-07-22] MEDS ORDERED: NITROGLYCERIN 0.4 MG SL TAB SL PRN (23:30)
[2024-07-22] MEDS ORDERED: MORPHINE SULFATE INJ 2 MG/ml SYRG IV PRN (23:30)
[2024-07-23] VITALS (9 sets, daily range): BP systolic 122–142; BP diastolic 71–84; PULSE 54–79; RESP 16–19; TEMP 97.7–98.3; O2SAT 97–100
[2024-07-23] MEDS ORDERED: LOSA-533 PO (06:23)
[2024-07-23] MEDS ORDERED: ATOR20TA50 PO (06:23)
[2024-07-23 09:41] LABS: Basophils # (auto) 0 10 ^3/uL (0-0.2); Basophils % (auto) 0.3 % (0.0-2.0); Eosinophils # (auto) 0.2 10 ^3/uL (0-0.8); Eosinophils % (auto) 3.9 % (0.0-7.0); Hematocrit 37.9 % (36.0-46.0); Hemoglobin 12.8 g/dL (12.2-16.2); Lymphocytes # (auto) 1.4 10 ^3/uL (0.4-5.4); Lymphocytes % (auto) 24.3 % (10.0-50.0); Mean Corpuscular Hemoglobin 29.2 pg (28.0-32.0); Mean Corpuscular Hgb Conc. 33.9 g/dL (32.0-36.0); Monocytes # (auto) 0.4 10 ^3/uL (0-1.3); Monocytes % (auto) 7.5 % (0.0-12.0); Neutrophils # (auto) 3.6 10 ^3/uL (1.6-8.6); Nucleated Red Blood Cells % 0.1 %; Platelet Count (auto) 205 10^3/uL (140-450); Red Blood Cells 4.41 10^6/uL (4.0-5.20); Red Cell Distribution Width 13.7 % (11.8-14.3); White Blood Cell 5.6 10^3/uL (4.4-10.8)
[2024-07-23] MEDS: ASPirin 81 mg TAB PO SCH (09:41)
[2024-07-23 10:03] LABS: Albumin 4.1 g/dL (3.2-4.8); Alkaline Phosphatase 80 U/L (46-116); Anion Gap 9 (5-15); Aspartate Aminotransferase 25 U/L (13-40); BUN/Creatinine Ratio 15.6 (10.0-20.0); Bilirubin, Total 0.5 mg/dL (0.2-1.0); Blood Urea Nitrogen 12 mg/dL (9-23); Calcium 9.5 mg/dL (8.7-10.4); Carbon Dioxide 27 mmol/L (20-31); Sodium 144 mmol/L (136-145); Total Protein 6.5 g/dL (5.7-8.2)
[2024-07-23 10:07] LABS: Alanine Aminotransferase 49 U/L (7-40); Chloride 108 mmol/L (98-107); Glucose 143 mg/dL (74-106); Potassium 3.3 mmol/L (3.5-5.1)
[2024-07-23] MEDS: ACETAMINOPHEN 325 MG TAB PO PRN (15:54)
[2024-07-23] MEDS: POTASSIUM EFFERVESENT TAB 25 MEQ PO ONE (18:06)
--- NOTE | 2024-07-23 23:11 | DVHPN2 ---
Subjective The patient is seen and examined at bedside. Remained dizzy. She said she can not even stand up without falling down. She feels like she on a [place]onay boat. Reviewed: Care Plan, H&P, Labs, Medications, Previous Orders, Radiology Changes from previous H/P or p: No Changes Eyes: No Pain, No Vision change, No Conjunctivae inflammation, No Eyelid inflammation, No Other, No Redness ENT: No Ear pain, No Ear discharge, No Nose pain, No Nose discharge, No Nose congestion, No Mouth pain, No Mouth swelling, No Throat pain, No Throat swelling, No Other Cardiovascular: No Chest Pain, No Palpitations, No Orthopnea, No Paroxysmal Noc. Dyspnea, No Edema, No Lt Headedness, No Other Respiratory: No Cough, No Dry, No Shortness of breath, No SOB with excertion, No Wheezing, No Hemoptysis, No Pleuritic Pain, No Sputum, No Other Gastrointestinal: No Nausea, No Vomiting, No Abdominal Pain, No Diarrhea, No Constipation, No Melena, No Hematochezia, No Other Genitourinary: No Dysuria, No Frequency, No Incontinence, No Hematuria, No Retention, No Other Musculoskeletal: No other, No neck pain, No shoulder pain, No arm pain, No back pain, No hand pain, No leg pain, No foot pain Skin: No Rash, No Lesions, No Jaundice, No Bruising, No Other Objective Vitals Vital Signs Date Time Temp Pulse Resp B/P (MAP) Pulse Ox O2 Delivery O2 Flow Rate FiO2 07/23/24 21:00 98.2 74 16 132/84 (100) 97 98.2 07/23/24 08:00 Nasal Cannula* 2 28 Intake/Output Intake and Output 07/23/24 07:00 Intake Total 1000 ml Balance 1000 ml Intake Oral 0 ml IV Total 1000 ml General Appearance: Alert, Oriented X3, Cooperative, moderate distress HEENT: Atraumatic, PERRLA, EOMI Neck: Supple Lungs: Clear to auscultation, Normal air movement Cardiovascular: Regular rate, Normal S1, Normal S2, No murmurs, Gallops, Rubs Abdomen: Normal bowel sounds, Soft, No tenderness Neuro: Cranial nerves 3-12 NL Psych/Mental Status: Mental status NL Medications Current Medications Medications Dose Ordered Sig/Magalie Route Start Time Stop Time Status Last Admin Dose Admin Meclizine HCl 25 mg Q8HPRN PRN PO 07/22/24 21:30 Atorvastatin Calcium 40 mg HS PO 07/22/24 22:00 07/23/24 21:38 40 MG Aspirin 81 mg DAILY PO 07/23/24 10:00 07/23/24 09:41 81 MG Sodium Chloride 10 ml Q8HR IV 07/22/24 22:00 07/23/24 21:40 10 ML Acetaminophen/ Hydrocodone Bitart 1 tab Q4HP PRN PO 07/22/24 21:30 Ondansetron HCl 4 mg Q4HP PRN IV 07/22/24 21:30 Docusate Sodium 100 mg BIDPRN PRN PO 07/22/24 21:30 Acetaminophen 650 mg Q6HP PRN PO 07/22/24 21:30 07/23/24 22:06 650 MG Nitroglycerin 0.4 mg Q5MINP PRN SL 07/22/24 23:30 Morphine Sulfate 2 mg Q30M PRN IV 07/22/24 23:30 Laboratory Results Laboratory Tests 07/23/24 09:06 Chemistry Test 07/23/24 09:06 Albumin 4.1 g/dL (3.2-4.8) Calcium Level 9.5 mg/dL (8.7-10.4) Total Protein 6.5 g/dL (5.7-8.2) LFT Test 07/23/24 09:06 Alanine Aminotransferase (ALT) 49 U/L (7-40) H Alkaline Phosphatase 80 U/L (46-116) Aspartate Amino Transferase (AST) 25 U/L (13-40) Total Bilirubin 0.5 mg/dL (0.2-1.0) Urinalysis Test 07/22/24 22:05 Urine Color Light-yellow (Yellow) Urine Clarity Turbid (Clear) H Urine pH 6.0 (5.0-9.0) Urine Specific [place] 1.025 (1.001-1.035) Urine Protein Negative (Negative) Urine Ketones Negative (Negative) Urine Blood Negative /uL (Negative) Urine Nitrite Negative (Negative) Urine Bilirubin Negative (Negative) Urine Urobilinogen Normal mg/dL (Negative) Urine Leukocyte Esterase 3+ /uL (Negative) Urine RBC 7 /hpf (0 - 4) Urine Microscopic WBC 16 /HPF (0-5) H Urine Squamous Epithelial Cells Mod /hpf (<5) Urine Bacteria None seen /hpf (None Seen) Urine Glucose Normal mg/dL (Normal) Labs and/or images reviewed: Labs reviewed by me Assessment/Plan Assessment/Plan Dizziness and giddiness Hypertension Stroke-like symptom Plan Continuing current management. Continuing with IV fluid. We will order an MRI of the brain to rule out acute CVA. Neurology input appreciated Continuing hypertensive medication This medical document was created using an electronic medical record system with [employer] direct computerized dictation system. Although this document has been carefully reviewed, there may still be some phonetic and typographical errors. These areas are purely typographical due to imperfections of the software programs, and do not reflect any compromise in the patient's medical care. Plan discussed with: Patient Date of Service: July 23, 2024 Billing Provider: LEN JUÁREZ MD Common Visit Codes: [id number] INP/OBS CARE(HIGH) LEN JUÁREZ MD July 23, 2024 23:11
[2024-07-24] VITALS (8 sets, daily range): BP systolic 110–140; BP diastolic 61–79; PULSE 57–84; RESP 16–19; TEMP 97.5–98.6; O2SAT 96–99
[2024-07-24 06:01] LABS: Sodium 143 mmol/L (136-145)
[2024-07-24 06:02] LABS: Anion Gap 8 (5-15); Carbon Dioxide 28 mmol/L (20-31)
[2024-07-24 06:03] LABS: Calcium 9.7 mg/dL (8.7-10.4)
[2024-07-24 06:06] LABS: Chloride 107 mmol/L (98-107)
[2024-07-24 06:07] LABS: BUN/Creatinine Ratio 18.2 (10.0-20.0); Blood Urea Nitrogen 14 mg/dL (9-23)
[2024-07-24 06:15] LABS: Glucose 117 mg/dL (74-106)
[2024-07-24] MEDS: MECLIZINE HCL 25 MG TAB PO PRN (08:35)
--- NOTE | 2024-07-24 18:09 | DVH ---
CLINICAL INDICATION: Rule out CVA. Indication for prior CT and CTA exams was dizziness. COMPARISON: Noncontrast CT dated 07/22/2024 and CTA head and neck dated 07/22/2024. TECHNIQUE: Multisequence multiplanar MRI images of the brain were obtained without contrast. FINDINGS: No acute infarct or hemorrhage. No mass or midline shift. Ventricles and sulci are within normal limits. Basal cisterns are patent. Cerebellum, brainstem, and midline structures are within no rmal limits. Paranasal sinuses are clear. Orbits are grossly unremarkable. IMPRESSION: No evidence of acute intracranial abnormality.
--- NOTE | 2024-07-24 23:11 | DVHPN2 ---
Subjective The patient is seen and examined at bedside. Still complain of dizziness. Reviewed: Care Plan, H&P, Labs, Medications, Previous Orders, Radiology Changes from previous H/P or p: No Changes Eyes: No Pain, No Vision change, No Conjunctivae inflammation, No Eyelid inflammation, No Other, No Redness ENT: No Ear pain, No Ear discharge, No Nose pain, No Nose discharge, No Nose congestion, No Mouth pain, No Mouth swelling, No Throat pain, No Throat swelling, No Other Cardiovascular: No Chest Pain, No Palpitations, No Orthopnea, No Paroxysmal Noc. Dyspnea, No Edema, No Lt Headedness, No Other Respiratory: No Cough, No Dry, No Shortness of breath, No SOB with excertion, No Wheezing, No Hemoptysis, No Pleuritic Pain, No Sputum, No Other Gastrointestinal: No Nausea, No Vomiting, No Abdominal Pain, No Diarrhea, No Constipation, No Melena, No Hematochezia, No Other Genitourinary: No Dysuria, No Frequency, No Incontinence, No Hematuria, No Retention, No Other Musculoskeletal: No other, No neck pain, No shoulder pain, No arm pain, No back pain, No hand pain, No leg pain, No foot pain Skin: No Rash, No Lesions, No Jaundice, No Bruising, No Other Objective Vitals Vital Signs Date Time Temp Pulse Resp B/P (MAP) Pulse Ox O2 Delivery O2 Flow Rate FiO2 07/24/24 17:00 97.5 66 16 129/73 (91) 98 97.5 07/24/24 08:00 Room Air* 0 21 Intake/Output Intake and Output 07/24/24 06:59 Intake Total 600 ml Output Total 200 ml Balance 400 ml Intake Oral 600 ml Output Urine Total 200 ml # Voids 3 General Appearance: Alert, Oriented X3, Cooperative, mild distress HEENT: Atraumatic, PERRLA, EOMI, Mucous membr. moist/pink Neck: Supple Lungs: Clear to auscultation, Normal air movement Cardiovascular: Regular rate, Normal S1, Normal S2, No murmurs, Gallops, Rubs Abdomen: Normal bowel sounds, Soft, No tenderness Neuro: Cranial nerves 3-12 NL Psych/Mental Status: Mental status NL Medications Current Medications Medications Dose Ordered Sig/Magalie Route Start Time Stop Time Status Last Admin Dose Admin Meclizine HCl 25 mg Q8HPRN PRN PO 5/9/25 21:30 07/24/24 16:39 25 MG Atorvastatin Calcium 40 mg HS PO 07/22/24 22:00 07/24/24 22:42 40 MG Aspirin 81 mg DAILY PO 07/23/24 10:00 07/24/24 08:36 81 MG Sodium Chloride 10 ml Q8HR IV 07/22/24 22:00 07/24/24 22:00 10 ML Acetaminophen/ Hydrocodone Bitart 1 tab Q4HP PRN PO 07/22/24 21:30 Ondansetron HCl 4 mg Q4HP PRN IV 07/22/24 21:30 Docusate Sodium 100 mg BIDPRN PRN PO 07/22/24 21:30 Acetaminophen 650 mg Q6HP PRN PO 07/22/24 21:30 07/24/24 16:40 650 MG Nitroglycerin 0.4 mg Q5MINP PRN SL 07/22/24 23:30 Morphine Sulfate 2 mg Q30M PRN IV 07/22/24 23:30 Laboratory Results Laboratory Tests 07/23/24 09:06 07/24/24 05:45 Chemistry Test 07/24/24 05:45 Calcium Level 9.7 mg/dL (8.7-10.4) Urinalysis Test 07/22/24 22:05 Urine Color Light-yellow (Yellow) Urine Clarity Turbid (Clear) H Urine pH 6.0 (5.0-9.0) Urine Specific [place] 1.025 (1.001-1.035) Urine Protein Negative (Negative) Urine Ketones Negative (Negative) Urine Blood Negative /uL (Negative) Urine Nitrite Negative (Negative) Urine Bilirubin Negative (Negative) Urine Urobilinogen Normal mg/dL (Negative) Urine Leukocyte Esterase 3+ /uL (Negative) Urine RBC 7 /hpf (0 - 4) Urine Microscopic WBC 16 /HPF (0-5) H Urine Squamous Epithelial Cells Mod /hpf (<5) Urine Bacteria None seen /hpf (None Seen) Urine Glucose Normal mg/dL (Normal) Labs and/or images reviewed: Labs reviewed by me Assessment/Plan Assessment/Plan Dizziness and giddiness Hypertension Stroke-like symptom Plan Continuing current management. Continuing with IV fluid. I reviewed the MRI of her brain showed no acute process Neurology input appreciated Continuing hypertensive medication Continuing with meclizine every 8 hours as needed. This medical document was created using an electronic medical record system with [employer] direct computerized dictation system. Although this document has been carefully reviewed, there may still be some phonetic and typographical errors. These areas are purely typographical due to imperfections of the software programs, and do not reflect any compromise in the patient's medical care. Plan discussed with: Patient My Orders Orders - LEN JUÁREZ MD Procedure Category Date Status Time Brain Head Wo Contrast MRI 07/24/24 Resulted 14:11 Regular Diet DIET 07/24/24 Transmitted Dinner Date of Service: July 24, 2024 Billing Provider: LEN JUÁREZ MD Common Visit Codes: [id number] INP/OBS CARE(HIGH) LEN JUÁREZ MD July 24, 2024 23:11
[2024-07-25 01:00] VITALS: BP 118/61; PULSE 75; RESP 18; TEMP 98; O2SAT 98
[2024-07-25 05:00] VITALS: BP 120/76; PULSE 77; RESP 19; TEMP 97.9; O2SAT 98
[2024-07-25 08:00] VITALS: PULSE 71; PULSE 72; RESP 18; O2SAT 96
[2024-07-25 09:00] VITALS: BP 135/81; PULSE 68; RESP 18; TEMP 97.8; O2SAT 96
[2024-07-25] MEDS: HYDROcodone-ACET 5/325MG TAB PO PRN (09:39)
[2024-07-25 13:00] VITALS: BP 129/64; PULSE 68; RESP 16; TEMP 98; O2SAT 95
[2024-07-25 14:01] VITALS: TEMP 36.6
== END 2024-07-25 14:30 | disposition home or self-care (01) | DRG 73 ==
LOC: ER 17:56 → OVERFLOW 23:16 → TELE-WESTW 07-23 03:36
PROVIDERS: ADMIT Internal Medicine; ATTEND Internal Medicine
DX: G90.89 Other disorders of autonomic nervous system (principal); I63.9 Cerebral infarction, unspecified; I10 Essential (primary) hypertension; E78.5 Hyperlipidemia, unspecified; F41.9 Anxiety disorder, unspecified; F32.A Depression, unspecified; Z79.899 Other long term (current) drug therapy
CPT/HCPCS: 36415; 70450; 70496; 70498; 70551; 80048; 80053; 81001; 82962; 85025; 85610; 85730; 93005; 96360; G0378